=== PATIENT | female | born 1975 | race Caucasian/White ===

== ENCOUNTER → 2016-12-24 | Outpatient (CLI) | payer OTHER ==
[~2016-12-24] MED LIST: CLARITIN 1010 MG/TAB PO; FLONASE NASAL S16 GM NS; MOTRIN 600600 MG/TAB PO; PERCOCET 325 MG1 TA2 PO; PRENATAL1 TA1 PO
== END ==
LOC: MC.RAD 10:00
DX: Z12.31 Encounter for screening mammogram for malignant neoplasm of breast (principal)

== ENCOUNTER → 2017-06-21 | Outpatient (CLI) | payer OTHER | LOC: COL.VAS 08:51 | DX: I08.3 Combined rheumatic disorders of mitral, aortic and tricuspid valves (principal) ==

== ENCOUNTER → 2017-12-27 | Outpatient (CLI) | payer OTHER | LOC: MC.RAD 13:00 | DX: Z12.31 Encounter for screening mammogram for malignant neoplasm of breast (principal); N64.89 Other specified disorders of breast ==

== ENCOUNTER → 2018-01-08 | Outpatient (CLI) | payer OTHER | LOC: MC.RAD 08:55 | DX: R92.8 Other abnormal and inconclusive findings on diagnostic imaging of breast (principal) ==

== ENCOUNTER 2018-04-29 23:27 | Emergency (ER) | payer OTHER ==
[~2018-04-29] VITALS: Ht 170.2 cm; Wt 104.5 kg
[2018-04-29 23:34] VITALS: TEMP 97.3
[2018-04-30 00:15] LABS: BASO # 0.1 (0.0-0.2); BASO % 0.7 % (0.0-2.0); EOS # 0.2 (0.0-0.7); EOS % 2.6 % (0-4.0); GRAN # 4.5 (1.4-6.5); GRAN % 55.5 % (42.2-75.2); HEMATOCRIT 37.7 % (37.0-47.0); HEMOGLOBIN 12.2 g/dl (12.5-16.0); LYMPH # 2.8 (1.2-3.4); LYMPH % 34.8 % (20.0-51.0); MEAN CELL VOLUME 92 fl (80.0-100.0); MEAN CORPUSCULAR HEMOGLOBIN 30 pg (27.0-31.0); MEAN CORPUSCULAR HGB CONC 32 g/dl (33.0-37.0); MONO # 0.5 (0.1-0.6); PLATELET COUNT 199 K/mm3 (130-400); RED BLOOD COUNT 4.09 M/mm3 (4.10-5.30); REDCELL DISTRIBUTION WIDTH-CV 12.2 % (11.5-14.5)
[2018-04-30 00:18] LABS: ALANINE AMINOTRANSFERASE 24 U/L (9-52); ALBUMIN 3.9 gm/dL (3.5-5.0); ALKALINE PHOSPHATASE 55 U/L (50-136); ANION GAP 9 mmol/L (7-16); AST,SGOT 19 U/L (15-37); BILIRUBIN,TOTAL 0.3 mg/dL (0.0-1.0); BLOOD UREA NITROGEN 19 mg/dL (7-17); CALCIUM 8.7 mg/dL (8.4-10.2); CARBON DIOXIDE 24 mmol/L (22-30); CHLORIDE 107 mmol/L (98-107); CREATININE, serum 0.65 mg/dL (0.52-1.25); GLUCOSE 94 mg/dL (74-106); LIPASE 192 U/L (23-300); POTASSIUM 3.9 mmol/L (3.4-5.0); SODIUM 139 mmol/L (137-145)
[2018-04-30 00:31] LABS: TROPONIN-I < 0.012 ng/mL (0.000-0.034)
[2018-04-30 01:00] VITALS: BP 124/68
[2018-04-30] MEDS ORDERED: ATIVAN 0.50.5 MG/TAB PO (01:05)
[2018-04-30 01:15] VITALS: PULSE 59
== END 2018-04-30 01:49 | disposition home or self-care (01) ==
LOC: COL.ER 23:27
PROVIDERS: Nurse Practitioner
DX: F41.9 Anxiety disorder, unspecified (principal); R07.89 Other chest pain; Z98.890 Other specified postprocedural states
CPT/HCPCS: J2060; J7030